=== PATIENT | male | born 1965 | race Caucasian/White ===

== ENCOUNTER 2023-01-11 12:03 | Inpatient (IN) | payer BC, OTHER ==
[~2023-01-11 12:03] MED LIST: Iopamidol-370 76% 500 ML MDV (1 ML CHARGE) ONE
[2023-01-11 13:11] LABS: #Eosinphils 0.1 thou/uL (0.0-0.7); #Monocytes 0.3 thou/uL (0.11-0.59); #Neutrophils 4.2 thou/uL (1.40-6.50); %Basophils 0.4 % (0.0-1.0); %Eosinophils 0.9 % (0.0-10.0); %Lymphocytes 14.7 % (21.0-51.0); %Monocytes 6.2 % (0.0-10.0); %Neutrophils 77.2 % (42.0-75.0); Hematocrit 40.7 % (42.0-52.0); Hemoglobin 14.7 g/dL (14.0-18.0); Mean Corpuscular HGB CONC 36.1 g/dL (32.0-36.0); Mean Corpuscular Volume 91.3 fl (78.0-98.0); Mean Platelet Volume 9.4 fL (7.4-10.4); Platelet Count 145 10x3/uL (130-400); RBC Distribution Width 12.2 % (11.5-14.5); Red Blood Cell (RBC) Count 4.46 mill/uL (4.70-6.10); White Blood Cell (WBC) Count 5.5 10x3/uL (4.8-10.8)
[2023-01-11 13:39] LABS: ALT (SGPT) 18 U/L (8-55); AST (SGOT) 26 U/L (5-34); Albumin 4.2 g/dL (3.5-5.0); Alkaline Phosphatase 57 U/L (40-110); Anion Gap 14 mmol/L (10-20); BUN (Urea Nitrogen) 10 mg/dL (8.4-25.7); Bilirubin, Total 0.6 mg/dL (0.2-1.2); Calc. Creatinine Clearance 0 mL/min (70-130); Calcium 9.1 mg/dL (7.8-10.44); Carbon Dioxide 28 mmol/L (22-29); Chloride 102 mmol/L (98-107); Estimated GFR 102; Globulin 2.5 g/dL (2.4-3.5); Glucose 90 mg/dL (70-105); Lipase 42 U/L (8-78); Magnesium 1.6 mg/dL (1.6-2.6); Potassium 4.3 mmol/L (3.5-5.1); Protein, Total 6.7 g/dL (6.0-8.3); Sodium 140 mmol/L (136-145)
[2023-01-11 13:41] LABS: Troponin I Less than 0.010 ng/mL (< 0.028)
[2023-01-11] MEDS ORDERED: Aspirin Chewable 81 MG TAB ONE (16:56)
[2023-01-11] MEDS ORDERED: Acetaminophen 325 MG TAB PO PRN (17:14)
[2023-01-11] MEDS ORDERED: Ondansetron ODT 4 MG TAB PO PRN (17:14)
[2023-01-11 18:59] VITALS: BMI 27.8
[2023-01-11] MEDS: Atorvastatin Calcium 40 MG TAB PO SCH (20:22)
[2023-01-12 05:30] LABS: Cardiac Risk 2.2 (Less than 4.5)
[2023-01-12] MEDS ORDERED: Lisinopril 20 MG TAB PO SCH (09:00)
[2023-01-12] MEDS: Lorazepam 2 MG/ML VIAL SLOW IVP PRN ×2 (09:17→15:54)
[2023-01-12] MEDS: Aspirin 81 mg Enteric Coated Tablet PO SCH (09:18)
[2023-01-12] MEDS ORDERED: diphenhydrAMINE 25 MG CAP PO PRN (19:44)
[2023-01-12] MEDS: Atorvastatin Calcium 40 MG TAB PO SCH (20:51)
[2023-01-13] MEDS: Lisinopril 20 MG TAB PO SCH ×2 (00:24→07:55)
[2023-01-13 06:38] LABS: Anion Gap 13 mmol/L (10-20); BUN (Urea Nitrogen) 11 mg/dL (8.4-25.7); Calc. Creatinine Clearance 123 mL/min (70-130); Calcium 9.5 mg/dL (7.8-10.44); Carbon Dioxide 30 mmol/L (22-29); Chloride 102 mmol/L (98-107); Estimated GFR 101; Glucose 100 mg/dL (70-105); Potassium 4.5 mmol/L (3.5-5.1); Sodium 140 mmol/L (136-145)
[2023-01-13] MEDS: Aspirin 81 mg Enteric Coated Tablet PO SCH (07:56)
[2023-01-13] MEDS ORDERED: hydrALAZINE 20 MG/ML VIAL SLOW IVP PRN (07:59)
[2023-01-13 20:08] VITALS: BP 151/98; TEMP 98.4
== END 2023-01-13 19:51 | disposition home or self-care (01) | DRG 92 ==
LOC: ERS 12:03 → 2SE 16:44 → OBSVTOIN 01-12 14:54
PROVIDERS: ADMIT Family Medicine; ATTEND Internal Medicine
DX: R20.2 Paresthesia of skin (principal); I16.1 Hypertensive emergency; I10 Essential (primary) hypertension; M48.02 Spinal stenosis, cervical region; R00.2 Palpitations; Z98.890 Other specified postprocedural states; Z82.49 Family history of ischemic heart disease and other diseases of the circulatory system; Z79.899 Other long term (current) drug therapy; F32.A Depression, unspecified; Z87.891 Personal history of nicotine dependence; M50.30 Other cervical disc degeneration, unspecified cervical region
CPT/HCPCS: 36415; 70450; 70496; 70498; 70551; 71045; 72141; 78452; 80048; 80053; 80061; 83690; 83735; 84443; 84484; 85025; 93005; 93017; 93306; A9500; G0378; J2060; Q9967

== ENCOUNTER 2023-03-23 17:00 | Outpatient (CLI) | payer BC | END 2023-03-23 17:01 | disposition home or self-care (01) | LOC: SLEEPLAB 17:00 | PROVIDERS: ATTEND Internal Medicine | DX: G47.33 Obstructive sleep apnea (adult) (pediatric) (principal) | CPT/HCPCS: 95811 ==